=== PATIENT | female | born 1985 ===

== ENCOUNTER 2017-02-01 07:05 | Inpatient (IN) | payer MEDICAID ==
[2017-02-01 06:09] VITALS: BMI 31.3
[2017-02-01 06:23] LABS: HEMATOCRIT 31.2 % (34.0-47.0); MEAN CELL VOLUME 74.9 fL (81.0-99.0); MEAN CORPUSCULAR HEMOGLOBIN 24.2 pg (27.0-31.0); MEAN CORPUSCULAR HGB CONC 32.2 g/dL (33.0-37.0); MEAN PLATELET VOLUME 9.1 fL (7.2-11.7); RED CELL DISTRIBUTION WIDTH 15.3 % (11.5-14.5); WHITE BLOOD COUNT 6.4 K/uL (4.8-10.8)
[2017-02-01 06:26] LABS: RBC URINE 1 /hpf (0-3); URINE BILIRUBIN NEGATIVE (NEGATIVE); URINE BLOOD NEGATIVE (NEGATIVE); URINE COLOR Yellow (YELLOW); URINE GLUCOSE (UA) NORMAL (Normal); URINE KETONE 1+ mg/dL (NEGATIVE); URINE LEUKOCYTE ESTERASE NEG Leu/uL (Negative); URINE PROTEIN 1+ mg/dL (NEGATIVE); URINE UROBILINOGEN NORMAL mg/dL (0.2-1.0); WBC URINE 2 /hpf (0-5)
--- NOTE | 2017-02-01 06:39 | OBADHP ---
Datetime: 02/01/2017 06:36 Admit Comment, IP Provider: chief complaint-scheduled csection HPI 31 y/o at 39.2 wga here for scheduled section course abnormal 1 hour gtt PMH denies PSH csectionx2 Obgyn hx ; csectionx2 Social hx deies tobacco,alcohol or illicit drug use Exam see exam section A/P 31 y/o at 39.2 wga here for scheduled csection.Requesting sterilization -admit -see orders Extremities - PN: Normal Abdomen - PN: Normal Back - PN: Normal Lungs - PN: Normal Heart - PN: Normal Neurologic - PN: Normal General - PN: Normal Presentation-Admit: Vertex Contraction Comments Provider: oc Gestation - Est Wks by US: 39.0 IP Hx Assessment: The History has been Reviewed and is Current Vital Signs Provider: Reviewed; Within Normal Limits IP Chief Complaint: Scheduled Section FHR Category Provider Fetus A: Category I Genitourinary Exam: Normal DTRs - PN: Normal EGA AdmitDate IP: 39.2 IP Adm Impression: Term, intrauterine ; No Active Labor IP Admit Plan: Admit to unit; Initiate Section protocol
[2017-02-01 06:43] LABS: CHLORIDE 106 mmol/L (98-107); POTASSIUM 3.5 mmol/L (3.6-5.2); SODIUM 134 mmol/L (132-148)
[2017-02-01 06:45] LABS: ALKALINE PHOSPHATASE 280 U/L (38-126); AST/SGOT 20 U/L (14-36); BILIRUBIN,TOTAL 0.6 mg/dL (0.2-1.3); CARBON DIOXIDE 17 mmol/L (22-30); GFR AFRICAN-AMERICAN > 60
[2017-02-01 06:46] LABS: ALB/GLOB RATIO 1.1 (1.0-2.1); ALT/SGPT 19 U/L (9-52); BLOOD UREA NITROGEN 6 mg/dL (7-17); CALCIUM 8.6 mg/dl (8.6-10.4); GLUCOSE,RANDOM 75 mg/dL (65-105); TOTAL PROTEIN 6.8 g/dL (6.3-8.3)
[~2017-02-01 07:05] MED LIST: Lactated Ringer's 1,000 ML IV SCH; Sodium Citrate/Citric Acid 15 ml Sol PO ONE; cefOXitin IV 2 gm in Dextrose 2 GM/50 ML BAG IVPB ONE
[2017-02-01] MEDS ORDERED: Oxytocin 20 units in LR 2,000 ML IV ONE ×2 (07:16→07:52)
[2017-02-01] MEDS ORDERED: cefOXitin IV 2 gm in Dextrose 2 GM/50 ML BAG IVPB ONE (07:20)
[2017-02-01] MEDS ORDERED: Oxytocin 10 Units/ml Inj ONE (07:52)
--- NOTE | 2017-02-01 07:53 | PCM.SURG1 ---
Surgeon's Initial Post Op Note - Surgeon's Notes Surgeon: dr nguyen Director [employer] System: dr hernandez Type of Anesthesia: Spinal Anesthesia Administered By: dr price Pre-Operative Diagnosis: 31 yr at 39weeks repeat c/s and btl Operative Findings: see the op reort Post-Operative Diagnosis: same Operation Performed: repeat section and b/l tubal ligation Specimen/Specimens Removed: cord blood. portion of right and left tube Estimated Blood Loss: EBL {In ML}: 800 Blood Products Given: N/A Drains Used: No Drains Post-Op Condition: Good Date of Surgery/Procedure: 02/01/17 Time of Surgery/Procedure: 08:00
[2017-02-01] MEDS ORDERED: Morphine 1 mg/ml preservative-free Inj(Duramorph) ONE (07:56)
--- NOTE | 2017-02-01 08:52 | OBDS ---
DELIVERY PERSONNEL Delivery Doctor: Soham Paulino MD Scrub Nurse: Caitlyn Solo Visitor Services Associate: Donna Mckinley RN Anesthesiologist: Papito Theodore MD MATERNAL INFORMATION Delivery Anesthesia: Spinal Estimated Blood Loss (ml): 800 Placenta Cultured: No Provider Comments: baby deliverd in lot endometrium clean b/l tubal ligation no com LABOR SUMMARY EDC: 02/06/2017 00:00 No. Babies in Womb: 1 Attempted: No Labor Anesthesia: None LABOR INFORMATION Reason for Induction: Not Applicable Oxytocin: N/A Group B Beta Strep: Positive (Annotations: 01/23/2017) Antibiotics # of Doses: 1 Antibiotics Time of Last Dose: 0739 Steroids Given: None Reason Steroids Not Administered: Not Applicable MEMBRANES Membranes Rupture Method: Artificial Rupture of Membranes: 02/01/2017 08:14 Length of Rupture (hrs): 0.02 Amniotic Fluid Color: Clear Amniotic Fluid Amount: Moderate Amniotic Fluid Odor: Normal STAGES OF LABOR Stage 3 hrs: 0 Stage 3 min: 0 CSECTION DELIVERY Primary Indication: Repeat Elective Secondary Indication: Repeat Elective CSection Urgency: Elective CSection Incidence: Repeat Labor: N/A Elective: Elective CSection Incision: Lower Uterine Transverse Sterilization Procedure: [place] BABY A INFORMATION Delivery Date/Time: 02/01/2017 08:15 Method of Delivery: Born in Route : No : N/A Forceps: N/A Vacuum Extraction: N/A Shoulder Dystocia : No SHOULDER DYSTOCIA BABY A Delivery Date/Time: 02/01/2017 08:15 PRESENTATION/POSITION BABY A Presentation: Cephalic Cephalic Presentation: Vertex Vertex Position: Left Occipital Transverse Breech Presentation: N/A PLACENTA INFORMATION BABY A Placenta Delivery Time : 02/01/2017 08:15 Placenta Method of Delivery: Manual Removal Placenta Status: Delivered SCORES BABY A Heart Rate 1 min: >100 bpm Resp Effort 1 min: Good Cry Reflex Irritability 1 min: Cough or Sneeze or Pulls Away Muscle Tone 1 min: Active Motion Color 1 min: Body [place], Extremities Blue SCORE 1 MIN: 9 Heart Rate 5 min: >100 bpm Resp Effort 5 min: Good Cry Reflex Irritability 5 min: Cough or Sneeze or Pulls Away Muscle Tone 5 min: Active Motion Color 5 min: Body [place], Extremities Blue SCORE 5 MIN: 9 INFORMATION BABY A Gestational Age at Delivery: 39.2 Gestational Status: Term Outcome : Liveborn Infant Condition : Stable Infant Sex: Female IDENTIFICATION/MEDS BABY A ID Band Number: [id number] ID Band Location: Left Leg; Left Arm Sensor Applied: Yes Sensor Number: [id number] Sensor Location : Cord Clamp Vitamin K Given : Aquamephyton 0.5 mg IM Erythromycin Given: Given Both Eyes WEIGHT/LENGTH BABY A Birthweight (gms): 3825 Weight (lb): 8 Infant Weight (oz): 7 Length Inches: 19.50 Infant Length cms: 49.5 CORD INFORMATION BABY A No. Cord Vessels: 3 Nuchal Cord : N/A Nuchal Cord Other: 0 True Knot: 0 Infant Cord pH Baby Arterial: N/A Cord pH Baby Venous: N/A Cord Blood Taken: Yes Banking/Donate Info: N/A Infant Suction: Mouth; Nose ASSESSMENT BABY A Infant Complications: None Physical Findings at Delivery: Within Normal Limits Infant Respirations: Appears Normal Fence Gate Assembler/ALS Called : No Care By: Dallin Kaplan RN Transferred To: Remains with Mother
[2017-02-01] MEDS ORDERED: Naloxone 0.4 mg/ml Inj (Adult) IVP PRN (09:00)
--- NOTE | 2017-02-01 09:27 | OP ---
PROCEDURE DATE: 02/01/2017 PREOPERATIVE DIAGNOSIS: A 31-year-old 3, para 2 at 39 weeks for scheduled section a nd bilateral tubal ligation. SURGEON: Soham Paulino MD. SUPERVISOR PATCHING SURGEON: Dr. Perdomo, who was present throughout for retraction, exposure, and pushing at the time of the delivery, and helping with the tubal ligation. ANESTHESIA: Spinal. ANESTHESIOLOGIST: Dr. Theodore. ESTIMATED BLOOD LOSS: 800. PROCEDURE PERFORMED: Repeat section and bilateral tubal ligation. COMPLICATIONS: None. PROCEDURE: After informed consent was obtained, the patient was brought to the operating room, place d on the table where spinal anesthesia was given. When anesthesia was found to be adequate, she was prepped and draped in normal sterile fashion. Saldivar catheter was inserted under sterile condition. After that, 2 cm above the pubic bone at the site of the previous skin incision, incision was made wi th a knife, the subcutaneous with a Bovie. The fascia was excised and extended on both the sides usi ng curved Young scissors. Fascia was first at the site of the pubic bone then at the site o f the umbilicus, and the rectus muscle was held up with 2 Allises. It was cut with a knife, then the peritoneum was excised, held up with Allises, was cut with the Metzenbaum scissors. We went into th e abdominal cavity. There were no adhesions. Bladder blade was made. Bladder flap was created, and bladder blade was placed. Lower uterine segment incision was made with a knife, extended on both th e sides using bandage scissors. Baby delivered in LOT position. Cord was clamped and cut. Baby was handed over to the awaiting shirt sewer. Placenta delivered manually. After that, uterus exterior ized, cleared of all the clots and debris. Uterine incision was closed using 1-0 Vicryl in nonlocking fashion. Second layer closure with the sa me stitch. Both the tubes were visualized. The patient wanted tubal ligation. So bilateral tubal l igation was then modified Akira technique. Portion of right and left tube was sent to pathology, a nd after that, cul-de-sac was cleared of all clots and debris. Uterus was returned back to abdominal cavity. The tubes were looked back again, and were not bleeding. Then incision was looked back and was ____ hemostatic. Then the peritoneum was closed using 2-0 Vicryl in nonlocking fashion. Muscle was closed using 2-0 running nonlocking fashion. The fascia was closed using 1-0 Vicryl in nonlocki ng fashion. The subcutaneous with 0 Vicryl interrupted fashion. Skin was closed using adnna. The patient tolerated the procedure well. Laps, sponge, and instrument counts correct x 2. Soham Paulino MD cc: [id number] TT: 02/01/2017 09:27:00 jn
[2017-02-01] MEDS: Simethicone 80 mg Chewtab PO SCH ×3 (14:34→22:05)
[2017-02-01] MEDS: Oxycodone/Acetaminophen 5/325 mg Tab PO PRN (18:32)
[2017-02-02] MEDS: Oxycodone/Acetaminophen 5/325 mg Tab PO PRN ×3 (00:28→18:16)
[2017-02-02 07:37] LABS: HEMATOCRIT 26.2 % (34.0-47.0); MEAN CORPUSCULAR HEMOGLOBIN 24.5 pg (27.0-31.0); MEAN CORPUSCULAR HGB CONC 32.6 g/dL (33.0-37.0); MEAN PLATELET VOLUME 8.7 fL (7.2-11.7); RED CELL DISTRIBUTION WIDTH 15.4 % (11.5-14.5); WHITE BLOOD COUNT 6.7 K/uL (4.8-10.8)
[2017-02-02] MEDS ORDERED: Bisacodyl 5mg EC Tab PO ONE (07:51)
[2017-02-02] MEDS: Simethicone 80 mg Chewtab PO SCH ×4 (10:04→21:30)
--- NOTE | 2017-02-02 15:03 | OBPPN ---
Datetime: 02/02/2017 13:05 PP Pain Prov: Within normal limits PP Nausea Prov: Denies PP Flatus Prov: No PP BM Prov: No PP Breasts Prov: Normal PP Heart Prov: Normal PP Lungs Prov: Normal PP Abdomen/Uterus Prov: Normal PP Lochia Prov: Normal PP Vulva/Perineum Prov: Not Done PP CVA Tenderness Prov: Normal PP Extremities Prov: Normal PP C/S Incision Prov: Normal PP Progress Prov: Normal PP Comments Phys Exam Prov: Abdomen: Soft. (+) BS. Non distended. Fundus firm, mobile, minimally ten maureen, 1 FB below umbilicus. Incision with danna - clean, dry, intact. Extremities: no calf tenderness All other systems reviewed and are negative PP Impression Prov: Normal progression PP Plan Prov: Continue present management PP Progress Note Prov: Patient received in room 460, sitting up in chair - seen at approximately 110 5 hours. exclusively. Denies dizziness, chest pain, shortness of breath or palpitation s. P.E.: as above. Mildly obese, in NAD. Awake, alert, oriented to time, person and place. Pleasant a nd cooperative - POD#1 H/H 8.6/26.2 Rh(+) Assessment: POD#1 31 yo P3, S/P C/S #3 with BTL. Afebrile, vital signs table. Returning GI and functions. Anemia noted; asymptomatic and hemodynamically stable. Encouraged to walk. Clinically sta ble. Plan: 1) continue present management Vital Signs Provider PP: Reviewed; Within Normal Limits
[2017-02-03] MEDS: Oxycodone/Acetaminophen 5/325 mg Tab PO PRN (02:11)
--- NOTE | 2017-02-03 08:06 | OBPPN ---
Datetime: 02/03/2017 08:03 PP Pain Prov: Within normal limits PP Nausea Prov: Denies PP Flatus Prov: Yes PP Heart Prov: Normal PP Lungs Prov: Normal PP Abdomen/Uterus Prov: Normal PP Lochia Prov: Normal PP CVA Tenderness Prov: Normal PP Extremities Prov: Normal PP C/S Incision Prov: Normal PP Progress Prov: Normal PP Impression Prov: Normal progression PP Plan Prov: Continue present management PP Progress Note Prov: S-patient reports that pain is well controlled.tolerating regular diet.ambula ting and voiding without difficulty O-VSS Afebrile Fundus firm and below umbilicus incision clean dry and intact extremities no calf tenderness A/P Patient s/p csection pod 2 doing well.anemia noted on labs -continue iron -continue routine pp care -anticipate discharge tomorrow Vital Signs Provider PP: Reviewed; Within Normal Limits
[2017-02-03] MEDS: Simethicone 80 mg Chewtab PO SCH ×4 (09:58→21:17)
[2017-02-04 08:54] VITALS: RESP 18
[2017-02-04] MEDS: Simethicone 80 mg Chewtab PO SCH ×2 (09:59→14:21)
--- NOTE | 2017-02-04 10:33 | OBDCSUM ---
Datetime: 02/04/2017 10:02 Discharged to, Provider: Home Follow up at, Provider: [facility]UNDO Disch Instr Activity: Normal activity; May Shower Disch Instr Diet: Regular Discharge Diet restrict Prov: none Discharge Diagnosis, Provider: Term Delivered Discharge Time: 02/04/2017 10:03 Follow up in weeks, Provider: Monday02/08/2017 Disch Referrals: None Disch Activity Restrictions: No exercising; No lifting; No driving; No sexual activity; Nothing in v agina - [place], tampons, douche Discharge Diagnosis Prov Other: Status post repeat section Status post bilateral tubal ligation Anemia
[2017-02-04] MEDS ORDERED: Measles, Mumps, and Rubella 0.5 ML VIAL SC ONE ×2 (11:00→16:45)
[2017-02-04 16:38] VITALS: BP 120/75; PULSE 69; TEMP 98.2; O2SAT 100
== END 2017-02-04 17:45 | disposition home or self-care (01) | DRG 370 ==
LOC: C.4D 07:05 → C.4M 11:18
PROVIDERS: ADMIT Obstetrics & Gynecology; ATTEND Obstetrics & Gynecology
PROC: 10D00Z1 Extraction of Products of Conception, Low, Open Approach (ICD-10-PCS; principal; 2017-02-01)
PROC: 0UL70ZZ Occlusion of Bilateral Fallopian Tubes, Open Approach (ICD-10-PCS; 2017-02-01)
DX: O34.211 Maternal care for low transverse scar from previous cesarean delivery (principal); O99.02 Anemia complicating childbirth; O99.214 Obesity complicating childbirth; O69.81X0 Labor and delivery complicated by cord around neck, without compression, not applicable or unspecified; Z30.2 Encounter for sterilization; Z3A.39 39 weeks gestation of pregnancy; Z68.31 Body mass index [BMI] 31.0-31.9, adult; Z37.0 Single live birth

== ENCOUNTER 2017-02-14 18:01 | Emergency (ER) | payer MEDICAID ==
[2017-02-14 18:01] VITALS: BMI 31.3
[2017-02-14 18:13] VITALS: O2SAT 98
--- NOTE | 2017-02-14 18:43 | C.PDOC ---
History Of Present Illness 31 year old at 39weeks had repeat and bilateral tubal ligation on 02/01/[address] Paulino. She had danna removed 02/08 and the following day after shower noticed wound opened. The next day wound opened in another area. She has been having foul smelling discharge and pain to area. She developed fever last night, took Motrin with little relief. Fever persists today and is here for evaluation. Time Seen by Provider: 02/14/17 18:26 Chief Complaint (Nursing): Abnormal Skin Integrity History Per: Patient History/Exam Limitations: no limitations Onset/Duration Of Symptoms: Days Current Symptoms Are (Timing): Still Present Quality Of Discomfort: "Pain" Past Medical History Reviewed: Historical Data, Nursing Documentation, Vital Signs Vital Signs: Last Vital Signs Temp 97.9 F 02/14/17 20:14 Pulse 82 02/14/17 20:14 Resp 18 02/14/17 20:14 BP 132/72 02/14/17 20:14 Pulse Ox 98 02/14/17 20:14 Surgical History: Other [facility] EXTRACTION OF POC, LOW CERVICAL, OPEN APPROACH (02/01/17) LOW CERVICAL (04/28/15) OCCLUSION OF BILATERAL FALLOPIAN TUBES, OPEN APPROACH (02/01/17) Family History: States: No Known Family Hx - Social History Hx Alcohol Use: No Hx Substance Use: No - Immunization History Hx Tetanus Toxoid Vaccination: No Hx Influenza Vaccination: No Hx Pneumococcal Vaccination: No Review Of Systems Constitutional: Positive for: Fever. Negative for: Chills Cardiovascular: Negative for: Chest Pain Respiratory: Negative for: Cough, Shortness of Breath Gastrointestinal: Positive for: Abdominal Pain. Negative for: Nausea, Vomiting , Diarrhea Genitourinary: Negative for: Dysuria Skin: Positive for: Other (pus from wound). Negative for: Rash Neurological: Negative for: Headache, Dizziness Physical Exam - Physical Exam Appears: Non-toxic, No Acute Distress Skin: Warm, Other ( site foul odor and purulent discharge noted. Superficial wound opening to right and left lateral edges and to right middle section) Head: Atraumatic, Normacephalic Eye(s): bilateral: Normal Inspection Nose: Normal Oral Mucosa: Moist Neck: Normal ROM Chest: Symmetrical Cardiovascular: Rhythm Regular, No Murmur Respiratory: Normal Breath Sounds, No Rales, No Rhonchi, No Wheezing Gastrointestinal/Abdominal: Bowel Sounds (active), Soft, Tenderness (minimal tendernesss around site), No Guarding, No Rebound Extremity: Normal ROM, Capillary Refill (<2 seconds) Neurological/Psych: Oriented x3, Normal Speech Gait: Steady ED Course And Treatment - Laboratory Results Result Diagrams: 02/14/17 18:58 02/14/17 18:58 Lab Interpretation: No Acute Changes O2 Sat by Pulse Oximetry: 98 (RA) Pulse Ox Interpretation: Normal Medical Decision Making Medical Decision Making: Impression: Csection wound opening with discharge and associated fever Plan: * CBC * CMP * UA * Consult OB, help appreciated Progress: Case discussed with Dr Hearn who agreed with plan and treatment Labs reviewed showing no leukocytosis and no acute changes to H/H [address] OB real [address] Dr Lemos at bedside recommends IV Zosyn and Flagyl dose. Flagyl was then cancelled patient is and wishes to continue. Dr Lemos cleaned the wound and applied sterile dressing. She states patient is appropriate for discharge with oral antibiotics Augmentin and to follow up in the clinic February 22. Disposition Counseled Patient/Family Regarding: Diagnosis, Need For Followup, Rx Given - Disposition [facility] Disposition: HOME/ ROUTINE Disposition Time: 20:37 Condition: STABLE Additional Instructions: Por favor, siga en la clnica el [place] Augmentin segn lo prescrito dos veces al da Mantenga la herida limpia y seca puede cambiar el vendaje diariamente [place] Tylenol o Advil para cualquier dolor o fiebre Prescriptions: Amoxicillin/Clavulanate [Augmentin 875 MG-125 MG] 1 tab PO BID #14 tab Instructions: Acute Wound Care (ED) Print Language: AZERI - POA Present On Arrival: None - Clinical Impression Clinical Impression: Separation of wound with drainage, - PA / ICICLE MACHINE OPERATOR / Resident Statement MD/DO has reviewed & agrees with the documentation as recorded. - Scribe Statement The provider has reviewed the documentation as recorded by the Oscaribjosé Hodges All medical record entries made by the Scribe were at my direction and personally dictated by me. I have reviewed the chart and agree that the record accurately reflects my personal performance of the history, physical exam, medical decision making, and the department course for this patient. I have also personally directed, reviewed, and agree with the discharge instructions and disposition.
[2017-02-14 19:04] LABS: BASO % 0.5 % (0.0-2.0); EOS % 0.7 % (0.0-4.0); HEMATOCRIT 31.1 % (34.0-47.0); LYMPH # 0.9 K/uL (1.0-4.3); LYMPH % 16.2 % (20.0-40.0); MEAN CELL VOLUME 73.2 fL (81.0-99.0); MEAN CORPUSCULAR HEMOGLOBIN 23.4 pg (27.0-31.0); MEAN CORPUSCULAR HGB CONC 31.9 g/dL (33.0-37.0); MEAN PLATELET VOLUME 8.4 fL (7.2-11.7); MONO # 0.3 K/uL (0.0-0.8); MONO % 5.5 % (0.0-10.0); RED CELL DISTRIBUTION WIDTH 16.2 % (11.5-14.5); WHITE BLOOD COUNT 5.5 K/uL (4.8-10.8)
[2017-02-14 19:18] LABS: CHLORIDE 101 mmol/L (98-107)
[2017-02-14 19:19] LABS: POTASSIUM 3.4 mmol/L (3.6-5.2); SODIUM 137 mmol/L (132-148)
[2017-02-14 19:20] LABS: RBC URINE 1 /hpf (0-3); URINE BACTERIA OCC (<OCC); URINE BILIRUBIN NEGATIVE (NEGATIVE); URINE BLOOD NEGATIVE (NEGATIVE); URINE COLOR Yellow (YELLOW); URINE GLUCOSE (UA) NORMAL (Normal); URINE KETONE NEGATIVE (NEGATIVE); URINE LEUKOCYTE ESTERASE TRACE Leu/uL (Negative); URINE PROTEIN NEGATIVE (NEGATIVE); URINE UROBILINOGEN NORMAL mg/dL (0.2-1.0); WBC URINE 8 /hpf (0-5)
[2017-02-14 19:21] LABS: ALKALINE PHOSPHATASE 146 U/L (38-126); AST/SGOT 21 U/L (14-36); BILIRUBIN,TOTAL 0.5 mg/dL (0.2-1.3); BLOOD UREA NITROGEN 11 mg/dL (7-17); CARBON DIOXIDE 24 mmol/L (22-30); GFR AFRICAN-AMERICAN > 60; GLUCOSE,RANDOM 95 mg/dL (65-105); TOTAL PROTEIN 7.6 g/dL (6.3-8.3)
[2017-02-14 19:22] LABS: ALT/SGPT 31 U/L (9-52); CALCIUM 8.5 mg/dl (8.6-10.4)
[2017-02-14] MEDS ORDERED: Piperacillin/Tazobact 3.375 gm 100 ML IV STA (19:45)
[2017-02-14] MEDS ORDERED: Piperacillin/Tazobact 3.375 gm 100 ML IVPB ONE (19:50)
[2017-02-14] MEDS ORDERED: metroNIDAZOLE IV 500 mg/100 ml 500 MG/100 ML BAG IV ONE (20:00)
--- NOTE | 2017-02-14 20:12 | CP.PCM.CON ---
History of Present Illness - History of Present Illness History of Present Illness: Asked by Evaristo Bonner to evaluate patient: S/P repeat section 02/01/17, wound separation 31 yo P3, S/P C/S #3 with bilateral tubal ligation 02/01/17; patient had an unremarkable post operative course, significant for anemia. Patient was discharged home 02/04/17, afebrile, and counseled to continue vitamins and iron supplementation. Patient was seen in clinic 02/08/17 - danna removed. [place] well until 02/11/17, when noticed a foul odor from the incision. Initially thought this was from the vagina and related to vaginal bleeding. "Then, I realized I was no longer bleeding", and decided to come in for evaluation. Denies fevers, chills, rigors; nausea or vomiting. (+) BM. . P OB: C/S x 3 PGYN: 12 x monthly x 5 PMH: denies PSH: C/S x 3; last one as above with BTL NKDA Meds: vit, iron Soc Hx: denies tobacco illicit drug or EtOH use. Lives with FOB and children Fam Hx: mother and father alive and well; no med issues Review of Systems - Review of Systems All systems: reviewed and no additional remarkable complaints except - Integumentary Integumentary: As Per HPI Past Patient History - Infectious Disease Hx of Infectious Diseases: None - Past Medical History & Family History Past Medical History?: No Past Family History: Reviewed and not pertinent - Past Social History Smoking Status: Never Smoked Drugs: Denies Home Situation {Lives}: With Family - CARDIAC Hx Cardiac Disorders: No - PULMONARY Hx Respiratory Disorders: No - NEUROLOGICAL Hx Neurological Disorder: No - HEENT Hx HEENT Problems: No - RENAL Hx Chronic Kidney Disease: No - ENDOCRINE/METABOLIC Hx Endocrine Disorders: No - HEMATOLOGICAL/ONCOLOGICAL Hx Anemia: Yes - INTEGUMENTARY Hx Dermatological Problems: No - MUSCULOSKELETAL/RHEUMATOLOGICAL Hx Musculoskeletal Disorders: No - GASTROINTESTINAL Hx Gastrointestinal Disorders: No - GENITOURINARY/GYNECOLOGICAL Hx Genitourinary Disorders: No - PSYCHIATRIC Hx Psychophysiologic Disorder: No Hx Substance Use: No - SURGICAL HISTORY Hx Surgeries: Yes Hx Section: Yes (X3(2010,2014,2016)) Meds Home Medications: Home Medication List Medication Instructions Recorded Confirmed Type Amoxicillin/Clavulanate [Augmentin 1 tab PO BID #14 tab 02/14/17 Rx 875 MG-125 MG] Allergies/Adverse Reactions: Allergies Allergy/AdvReac Type Severity Reaction Status Date / Time No Known Allergies Allergy Verified 02/14/17 18:06 - Medications Medications: Current Medications Piperacillin Sod/Tazobactam Sod (Zosyn 3.375 In Ns 100ml) 100 mls @ 200 mls/hr IV STAT STA Stop: 02/14/17 20:14 Last Admin: 02/14/17 20:00 Dose: 200 mls/hr Physical Exam - Constitutional Appears: Well, No Acute Distress - Head Exam Head Exam: NORMAL INSPECTION - Eye Exam Eye Exam: Normal appearance - ENT Exam ENT Exam: Mucous Membranes Moist - Neck Exam Neck exam: Positive for: Full Rom, Normal Inspection - Respiratory Exam Respiratory Exam: NORMAL BREATHING PATTERN - Cardiovascular Exam Cardiovascular Exam: REGULAR RHYTHM - GI/Abdominal Exam GI & Abdominal Exam: Normal Bowel Sounds (Non tender in all quadrants. Pfannenstiel noted for minimal separation in 3 locations: the largest 1cm x 4mm along right paramedian line. the other 2 at right and left angles, each approx 4 mm. Incision cleaned with hydrogen peroxide: normal saline soaked gauze and probed with swab. No further separation.), Soft - Extremities Exam Extremities exam: Positive for: full ROM, normal inspection - Neurological Exam Neurological exam: Alert, Oriented x3 - Psychiatric Exam Psychiatric exam: Normal Affect, Normal Mood - Skin Skin Exam: Dry, Intact, Normal Color, Warm Results - Vital Signs Recent Vital Signs: Last Vital Signs Temp 101.2 F H 02/14/17 18:07 Pulse 102 H 02/14/17 18:07 Resp 17 02/14/17 18:07 BP 101/68 02/14/17 18:07 Pulse Ox 98 02/14/17 20:01 - Labs Result Diagrams: 02/14/17 18:58 02/14/17 18:58 Labs: Laboratory Results - last 24 hr 02/14/17 02/14/17 02/14/17 18:58 18:58 18:58 WBC 5.5 RBC 4.25 Hgb 9.9 L Hct 31.1 L MCV 73.2 L MCH 23.4 L MCHC 31.9 L RDW 16.2 H Plt Count 247 MPV 8.4 Neut % (Auto) 77.1 H Lymph % (Auto) 16.2 L [place] % (Auto) 5.5 Eos % (Auto) 0.7 Baso % (Auto) 0.5 Neut # 4.2 Lymph # 0.9 L [place] # 0.3 Eos # 0.0 Baso # 0.0 Sodium 137 Potassium 3.4 L Chloride 101 Carbon Dioxide 24 Anion Gap 15 BUN 11 Creatinine 0.8 Est GFR ( Amer) > 60 Est GFR (Non-Af Amer) > 60 Random Glucose 95 Lactic Acid Calcium 8.5 L Total Bilirubin 0.5 AST 21 ALT 31 Alkaline Phosphatase 146 H D Total Protein 7.6 Albumin 3.9 Globulin 3.8 Albumin/Globulin Ratio 1.0 Urine Color Yellow Urine Clarity Clear Urine pH 6.0 Ur Specific [place] 1.020 Urine Protein Negative Urine Glucose (UA) Normal Urine Ketones Negative Urine Blood Negative Urine Nitrate Negative Urine Bilirubin Negative Urine Urobilinogen Normal Ur Leukocyte Esterase Trace Urine WBC (Auto) 8 H Urine RBC (Auto) 1 Ur Squamous Epith Cells < 1 Urine Bacteria Occ H 02/14/17 18:58 WBC RBC Hgb Hct MCV MCH MCHC RDW Plt Count MPV Neut % (Auto) Lymph % (Auto) [place] % (Auto) Eos % (Auto) Baso % (Auto) Neut # Lymph # [place] # Eos # Baso # Sodium Potassium Chloride Carbon Dioxide Anion Gap BUN Creatinine Est GFR ( Amer) Est GFR (Non-Af Amer) Random Glucose Lactic Acid 0.5 L Calcium Total Bilirubin AST ALT Alkaline Phosphatase Total Protein Albumin Globulin Albumin/Globulin Ratio Urine Color Urine Clarity Urine pH Ur Specific [place] Urine Protein Urine Glucose (UA) Urine Ketones Urine Blood Urine Nitrate Urine Bilirubin Urine Urobilinogen Ur Leukocyte Esterase Urine WBC (Auto) Urine RBC (Auto) Ur Squamous Epith Cells Urine Bacteria Assessment & Plan - Assessment and Plan (Free Text) Assessment: POD#13, 31 yo P3, S/P C/S x 3 with BTL 02/01/17, with slight/ minimal wound separation, as described above. Patient with elevated temp as above. May also be related to breast engorgement, last fed at 1700 hours. No elevated WBC. Abdominal exam is benign; normal GI function. It was discussed with patient to keep area clean and dry; and to observe for any signs of worsening infection ( fever, chills, vomiting, diarrhea); and to take antibiotics as prescribed. With this drug, she can continue to breastfeed. Patient, and significant other, expressed an understanding and agree. S/P tylenol, adequate response; repeat temp 97.9 Fahrenheit. Patient is clinically stable. Plan: Discharge home Augmentin 500 mg p.o. BID x 7 days Follow up [facility] 02/22/17 for wound check Return to E.D. for fever, chills, rigors, nausea, vomiting, diarrhea Continue vitamins and iron supplementation Thank you for the pleasure of this consultation - Date & Time Date: 02/14/17 Time: 20:00
[2017-02-14 20:15] VITALS: BP 132/72; PULSE 82; RESP 18; TEMP 97.9
== END 2017-02-14 20:41 | disposition home or self-care (01) ==
LOC: C.ER 18:01
DX: O90.0 Disruption of cesarean delivery wound (principal)
CPT/HCPCS: 80053; 81001; 83605; 85025; 87040; 87070; 87086; 96360; 99285; J2543

== ENCOUNTER 2017-10-16 15:54 | Emergency (ER) | payer MEDICAID, OTHER ==
[2017-10-16 15:54] VITALS: BMI 31.3
[2017-10-16 16:03] VITALS: O2SAT 100
--- NOTE | 2017-10-16 17:34 | C.PDOC ---
History Of Present Illness 32 year old female presents complaining of left sided pelvic pain, intermittent since her 9 months ago. States she had similar pain after a previous child was born which later resolved. Pain worsens with straining including lifting up children and pushing the stroller. Seen by her BAG GRADER and was told it was healing from the incision. Today patient developed vaginal spotting, which she noted when she went to wipe. Of note, patient is currently breast feeding and her periods are irregular. PMD: none Time Seen by Provider: 10/16/17 17:33 Chief Complaint (Nursing): Female Genitourinary History Per: Patient History/Exam Limitations: no limitations Onset/Duration Of Symptoms: Intermittent Episodes Current Symptoms Are (Timing): Still Present Past Medical History Reviewed: Historical Data, Nursing Documentation, Vital Signs Vital Signs: Last Vital Signs Temp 97.8 F 10/16/17 20:38 Pulse 88 10/16/17 20:38 Resp 18 10/16/17 20:38 BP 108/69 10/16/17 20:38 Pulse Ox 100 10/16/17 21:53 - Medical History PMH: Anemia Denies: Chronic Kidney Disease [facility]: [facility] EXTRACTION OF POC, LOW CERVICAL, OPEN APPROACH (02/01/17) LOW CERVICAL (04/28/15) OCCLUSION OF BILATERAL FALLOPIAN TUBES, OPEN APPROACH (02/01/17) Family History: States: No Known Family Hx - Social History Hx Alcohol Use: No Hx Substance Use: No - Immunization History Hx Tetanus Toxoid Vaccination: No Hx Influenza Vaccination: No Hx Pneumococcal Vaccination: No Review Of Systems Except As Marked, All Systems Reviewed And Found Negative. Constitutional: Negative for: Fever, Chills Gastrointestinal: Negative for: Nausea, Vomiting, Abdominal Pain Genitourinary: Positive for: Vaginal Bleeding, Pelvic Pain (left). Negative for : Dysuria, Frequency, Vaginal Discharge Physical Exam - Physical Exam Appears: Well, Non-toxic, No Acute Distress Skin: Normal Color, Warm, Dry Head: Atraumatic, Normacephalic Eye(s): bilateral: Normal Inspection, EOMI Nose: Normal Oral Mucosa: Moist Neck: Normal ROM, Supple Chest: Symmetrical Respiratory: No Accessory Muscle Use, Other (speaking full sentences) Gastrointestinal/Abdominal: Soft, Tenderness (Left-sided pelvic tenderness), Other (Well-healed incision with no erythema, tenderness, or drainage) Back: No CVA Tenderness, No Vertebral Tenderness Extremity: Normal ROM Extremity: Bilateral: Atraumatic Neurological/Psych: Oriented x3, Normal Speech, No Other (focal deficits) ED Course And Treatment O2 Sat by Pulse Oximetry: 100 (RA) Pulse Ox Interpretation: Normal - CT Scan/US US Pelvis Other Rad Studies (CT/US): Read By Radiologist, Radiology Report Reviewed CT/US Interpretation: FINDINGS: Uterus/cervix: The uterus measures 8.6 x 3. 8 by 5.8 cm. Nabothian cyst is. seen in the cervix. A 4 mm echogenic focus is noted within the fundic portion. of the endometrial canal. The endometrial stripe measures 6 mm. A trace. amount of fluid is noted in the endometrial canal. A posterior. submucosal/intramural fibroid is noted in the uterine fundus measuring 1.3 x. 1.1 x 1.8 cm. Right ovary: The right ovary measures 4.7 x 3 x 2.8 cm and contains several. subcentimeter follicles. Blood flow is seen in the right ovary on color Doppler. examination. Left ovary: The left ovary measures 4.4 x 2.6 x 3.4 cm. Several. subcentimeter follicles are present. Blood flow is seen in the left ovary on. color Doppler examination. Small amount fluid surrounds the left ovary. Free fluid: No free fluid. Bladder: Empty bladder which cannot be evaluated with this probe. . IMPRESSION: 1. Posterior submucosal/intramural uterine fibroid in the fundus. . 2. 4 mm echogenic focus within the fundic portion of the endometrial canal. This could be related to previous surgery. It could also be related to. calcification or air within the endometrial canal. . 3. Trace amount of fluid noted within the endometrial canal Progress Note: Ordered UA, urine culture, and pelvis/transvag ultrasound. Pt given 650 mg Tylenol PO. US findings d/w patient in detail and given copy of US. Patient will f/u with water resources technical officer in1-2 days. Case discussed and results evlauated by Dr Madrid, agreed upon plan and discharge. Disposition Counseled Patient/Family Regarding: Studies Performed, Diagnosis, Need For Followup - Disposition Disposition: HOME/ ROUTINE Disposition Time: 20:44 Condition: STABLE Additional Instructions: Follow up with your BAG GRADER in 2-5 days for further evaluation. Return to the emergency department at any time if symptoms persist or worsen. Instructions: Acute Pelvic Pain Forms: [employer] ([place]an) - POA Present On Arrival: None - Clinical Impression Clinical Impression: Pelvic pain - PA / ETCHER ELECTROL[employer] / Resident Statement MD/DO has reviewed & agrees with the documentation as recorded. - Scribe Statement The provider has reviewed the documentation as recorded by the Scribe (Lakshmi Santoro) All medical record entries made by the Scribe were at my direction and personally dictated by me. I have reviewed the chart and agree that the record accurately reflects my personal performance of the history, physical exam, medical decision making, and the department course for this patient. I have also personally directed, reviewed, and agree with the discharge instructions and disposition.
[2017-10-16 18:03] LABS: HCG,QUALITATIVE URINE NEGATIVE (NEGATIVE)
[2017-10-16 18:06] LABS: SQUAMOUS EPITHIAL < 1 /hpf (0-5); URINE BILIRUBIN NEGATIVE (NEGATIVE); URINE BLOOD 1+ (NEGATIVE); URINE CLARITY Clear (Clear); URINE COLOR Straw (YELLOW); URINE GLUCOSE (UA) NORMAL (Normal); URINE LEUKOCYTE ESTERASE NEG Leu/uL (Negative); URINE NITRATE NEGATIVE (NEGATIVE); URINE PROTEIN NEGATIVE (NEGATIVE); URINE UROBILINOGEN NORMAL mg/dL (0.2-1.0)
--- NOTE | 2017-10-16 20:29 | US ---
EXAM: US Pelvis Complete, Transabdominal CLINICAL HISTORY: 32 years old, female; Pain; Pelvic pain; Prior surgery; Surgery date: 6+ months; Surgery type: 3 c-sections; Additional info: L pain TECHNIQUE: Real-time transabdominal pelvic ultrasound (complete) with image documentation. COMPARISON: No relevant prior studies available. FINDINGS: Uterus/cervix: The uterus measures 8.1 x 3.8 x 4.7 cm. Endometrial stripe is not well seen. No myometrial mass. Right ovary: The right ovary measures 3.1 x 3 x 2.8 cm. Blood flow is seen in the right ovary on color Doppler examination. Left ovary: The left ovary is not seen as a separate structure. Free fluid: No free fluid. Bladder: Unremarkable as visualized. Wall is normal thickness for degree of distention. IMPRESSION: Poor visualization of the endometrial stripe. Nonvisualization of the left ovary. The remainder of the examination is unremarkable.. EXAM: US Pelvis, Transvaginal EXAM DATE/TIME: Exam ordered 10/16/2017 6:17 PM CLINICAL HISTORY: 32 years old, female; Pain; Pelvic pain; Prior surgery; Surgery date: 6+ months; Surgery type: 3 c-sections; Additional info: L pain TECHNIQUE: Real-time transvaginal pelvic ultrasound (complete) with image documentation. Transvaginal imaging was used for better evaluation of the endometrium and adnexa. COMPARISON: No relevant prior studies available. FINDINGS: Uterus/cervix: The uterus measures 8.6 x 3. 8 by 5.8 cm. Nabothian cyst is seen in the cervix. A 4 mm echogenic focus is noted within the fundic portion of the endometrial canal. The endometrial stripe measures 6 mm. A trace amount of fluid is noted in the endometrial canal. A posterior submucosal/intramural fibroid is noted in the uterine fundus measuring 1.3 x 1.1 x 1.8 cm. Right ovary: The right ovary measures 4.7 x 3 x 2.8 cm and contains several subcentimeter follicles. Blood flow is seen in the right ovary on color Doppler examination. Left ovary: The left ovary measures 4.4 x 2.6 x 3.4 cm. Several subcentimeter follicles are present. Blood flow is seen in the left ovary on color Doppler examination. Small amount fluid surrounds the left ovary. Free fluid: No free fluid. Bladder: Empty bladder which cannot be evaluated with this probe. IMPRESSION: 1. Posterior submucosal/intramural uterine fibroid in the fundus. 2. 4 mm echogenic focus within the fundic portion of the endometrial canal. This could be related to previous surgery. It could also be related to calcification or air within the endometrial canal. 3. Trace amount of fluid noted within the endometrial canal
[2017-10-16 20:39] VITALS: BP 108/69; PULSE 88; RESP 18; TEMP 97.8
== END 2017-10-16 20:54 | disposition home or self-care (01) ==
LOC: C.ER 15:54
DX: R10.2 Pelvic and perineal pain (principal)

== ENCOUNTER 2018-07-03 01:38 | Emergency (ER) | payer SELFPAY ==
[2018-07-03] MEDS ORDERED: Sodium Chloride 0.9% 1,000 ML IV ONE (01:55)
--- NOTE | 2018-07-03 01:55 | C.PDOC ---
History Of Present Illness Patient woke up with severe right upper quadrant pain. Sharp, stabbing, non radiating pain. Has had a history of 3 and tubal ligation. No f/c/n/v. Took some tylenol without relief Time Seen by Provider: 07/03/18 01:54 History Per: Patient History/Exam Limitations: no limitations Onset/Duration Of Symptoms: Hrs Current Symptoms Are (Timing): Still Present Context: Other Severity: Severe Pain Scale Rating Of: 6 Location Of Pain/Discomfort: RUQ Radiation Of Pain To:: None Quality Of Discomfort: Sharp, Stabbing Associated Symptoms: denies: Fever, Chills, Nausea, Vomiting Exacerbating Factors: None Alleviating Factors: None Last Bowel Movement: Yesterday Recent travel outside of the [place]: No Additional History Per: Patient Abnormal Vaginal Bleeding: No Past Medical History Reviewed: Historical Data, Nursing Documentation, Vital Signs Vital Signs: Last Vital Signs Temp 97.6 F 07/03/18 01:43 Pulse 66 07/03/18 01:43 Resp 16 07/03/18 01:43 BP 108/72 07/03/18 01:43 Pulse Ox 100 07/03/18 01:43 - Medical History PMH: Anemia Denies: Chronic Kidney Disease Surgical History: - [facility] Procedures EXTRACTION OF POC, LOW CERVICAL, OPEN APPROACH (02/01/17) LOW CERVICAL (04/28/15) OCCLUSION OF BILATERAL FALLOPIAN TUBES, OPEN APPROACH (02/01/17) Family History: States: No Known Family Hx - Social History Hx Alcohol Use: No Hx Substance Use: No - Immunization History Hx Tetanus Toxoid Vaccination: No Hx Influenza Vaccination: No Hx Pneumococcal Vaccination: No Review Of Systems Constitutional: Negative for: Fever, Chills ENT: Negative for: Throat Pain Cardiovascular: Negative for: Chest Pain Respiratory: Negative for: Shortness of Breath Gastrointestinal: Positive for: Abdominal Pain. Negative for: Nausea, Vomiting Genitourinary: Negative for: Dysuria, Vaginal Bleeding Musculoskeletal: Negative for: Back Pain Skin: Negative for: Rash Neurological: Negative for: Weakness Psych: Negative for: Anxiety Physical Exam - Physical Exam Appears: Non-toxic Skin: Warm, Dry Oral Mucosa: Moist Neck: Supple Chest: Symmetrical Cardiovascular: Rhythm Regular Respiratory: No Rales, No Rhonchi, No Wheezing Gastrointestinal/Abdominal: Bowel Sounds (tympanic), Soft, Tenderness (ruq), Distention, Guarding (voluntary), Rebound (mild) Back: Normal Inspection Extremity: Normal ROM Extremity: Bilateral: Atraumatic Pulses: Left Dorsalis Pedis: Normal, Right Dorsalis Pedis: Normal Neurological/Psych: Oriented x3, Normal Speech, Normal Cognition Gait: Steady ED Course And Treatment - Laboratory Results Result Diagrams: 07/03/18 02:20 07/03/18 02:20 O2 Sat by Pulse Oximetry: 100 Pulse Ox Interpretation: Normal Reevaluation Time: 05:27 Reassessment Condition: Improved Disposition Counseled Patient/Family Regarding: Studies Performed, Diagnosis, Need For Followup, Rx Given - Disposition Referrals: [facility] [Outside] [facility] [Outside] Disposition: HOME/ ROUTINE Disposition Time: 01:55 Condition: FAIR Additional Instructions: Please return if symptoms recur Prescriptions: Polyethylene Glycol 3350 [Miralax] 17 gm PO DAILY #270 ml Instructions: Acute Abdomen (Belly Pain), Adult (DC), Constipation, Adult (DC) - Clinical Impression Clinical Impression: Abdominal pain, Constipation
[2018-07-03 01:56] VITALS: BMI 27.0
[2018-07-03 02:24] LABS: BASO # 0.1 K/uL (0.0-0.2); BASO % 0.6 % (0.0-2.0); EOS # 0.7 K/uL (0.0-0.7); EOS % 6.1 % (0.0-4.0); HEMOGLOBIN 12.5 g/dL (11.0-16.0); LYMPH # 1.8 K/uL (1.0-4.3); LYMPH % 15.4 % (20.0-40.0); MEAN CORPUSCULAR HEMOGLOBIN 28.3 pg (27.0-31.0); MEAN CORPUSCULAR HGB CONC 33.7 g/dL (33.0-37.0); MEAN PLATELET VOLUME 8.5 fL (7.2-11.7); MONO # 0.4 K/uL (0.0-0.8); MONO % 3.7 % (0.0-10.0); NEUT # 8.6 K/uL (1.8-7.0); NEUT % 74.2 % (50.0-75.0); NRBC % 0.1 % (0.0-2.0); RBC 4.43 Mil/uL (3.80-5.20); RED CELL DISTRIBUTION WIDTH 13.3 % (11.5-14.5); WHITE BLOOD COUNT 11.6 K/uL (4.8-10.8)
[2018-07-03 02:25] LABS: HCG,QUALITATIVE URINE NEGATIVE (NEGATIVE)
[2018-07-03] MEDS ORDERED: Sodium Chloride 0.9% 1,000 ML ONE (02:30)
[2018-07-03 02:35] LABS: ALB/GLOB RATIO 1.6 (1.0-2.1); ALBUMIN 4.6 g/dL (3.5-5.0); ALT/SGPT 63 U/L (9-52); AST/SGOT 27 U/L (14-36); BLOOD UREA NITROGEN 16 mg/dL (7-17); CALCIUM 9.1 mg/dl (8.6-10.4); GFR NON-AFRICAN AMERICAN > 60; LIPASE 95 U/L (23-300)
[2018-07-03 02:44] LABS: PROTHROMBIN TIME 11.3 SECONDS (9.7-12.2)
[2018-07-03] MEDS ORDERED: Iodixanol 320 MG/ML 100 ML BOTTLE IV ONE (03:27)
[2018-07-03 03:33] VITALS: TEMP 97.9
[2018-07-03 04:41] LABS: SQUAMOUS EPITHIAL 2 /hpf (0-5); URINE BACTERIA OCC (<OCC); URINE BILIRUBIN NEGATIVE (NEGATIVE); URINE BLOOD NEGATIVE (NEGATIVE); URINE CLARITY Clear (Clear); URINE COLOR Yellow (YELLOW); URINE GLUCOSE (UA) NORMAL (Normal); URINE LEUKOCYTE ESTERASE NEG Leu/uL (Negative); URINE PROTEIN NEGATIVE (NEGATIVE); URINE UROBILINOGEN NORMAL mg/dL (0.2-1.0)
[2018-07-03 05:52] VITALS: BP 100/60; PULSE 74; RESP 16; O2SAT 98
--- NOTE | 2018-07-03 11:03 | CT ---
Date of service: 07/03/2018 PROCEDURE: CT Abdomen and Pelvis with contrast HISTORY: RUQ abd pain, hx of COMPARISON: TECHNIQUE: Contrast dose: Radiation dose: Total exam DLP = 294.55 mGy-cm. This CT exam was performed using one or more of the following dose reduction techniques: Automated exposure control, adjustment of the mA and/or kV according to patient size, and/or use of iterative reconstruction technique. FINDINGS: LOWER THORAX: Heart size normal. No significant pericardial effusion. Tiny hiatal hernia.. Lung carcamo clear. No evidence of infiltrate effusion or basilar pneumothorax. There is a small approximately 3.5 mm nodule right middle lobe. Followup CT scan of the chest could be performed to further evaluate the remaining lung carcamo and serve future baseline for comparison studies LIVER: Liver is borderline/mildly enlarged measuring nearly 19 cm in CC dimension. The minimal fatty hepatic infiltration. No obvious hepatic mass or collection. Portal and splenic veins are opacified. GALLBLADDER AND BILE DUCTS: Gallbladder is physiologically distended. No evidence of intraluminal gallbladder calculi PANCREAS: No evidence of pancreatic masses or collections. The SPLEEN: Spleen exhibits normal size and attenuation pattern without mass collection or calcification ADRENALS: No adrenal lesions. KIDNEYS AND URETERS: Unremarkable. No hydronephrosis. No solid mass. VASCULATURE: . No aortic aneurysm. No aortic atherosclerotic calcification or mural plaque present. Note the right ovarian vein does not appear well opacified. Rule out thrombosis. BOWEL: Evaluation of the bowel is slightly limited due to the lack of oral contrast. Stomach is incompletely distended. There are several on mildly distended fluid-filled loops of small bowel some of which exhibit minimal wall thickening. Findings could represent a nonspecific enteritis. Clinical correlation recommended. Large amount of stool is present within the cecum at ascending and transverse colon suggesting mild fecal retention/constipation.. Scattered colonic diverticula without evidence of acute diverticulitis no definitive abnormal mural wall thickening. APPENDIX: Normal appendix. PERITONEUM: Unremarkable. No free fluid. No free air. Small fat containing umbilical hernia. LYMPH NODES: Unremarkable. No enlarged lymph nodes. BLADDER: The urinary bladder is physiologically distended with minimal wall thickening. Clinical correlation with urinalysis. No intraluminal urinary bladder calculi. REPRODUCTIVE: . Unremarkable as visualized. BONES: There are no acute fractures.. Minimal degenerative spondylosis lower thoracic and lumbar spine. OTHER FINDINGS: None. IMPRESSION: Questionable mild enteritis as described. Few scattered colonic diverticula without radiographic evidence of acute diverticulitis. Findings also suggest mild localized fecal retention/constipation. Borderline hepatomegaly with mild fatty infiltration. Right ovarian vein does not appear well opacified; rule out thrombosis. Small approximately 3.5 mm nodule right middle lobe. Followup CT scan chest. Note that this report was placed in PA review folder for followup recommended as detailed above
== END 2018-07-03 05:52 | disposition home or self-care (01) ==
LOC: C.ER 01:38
DX: R10.11 Right upper quadrant pain (principal); K59.00 Constipation, unspecified
CPT/HCPCS: 74177; 80053; 81001; 83690; 84703; 85025; 85610; 85730; 96361; 96374; 96375; 99284; J1885; J2270; J2405; J7030; Q9967

== ENCOUNTER 2018-11-21 09:46 | Outpatient (CLI) | payer OTHER | END 2018-11-21 09:47 | disposition home or self-care (01) | LOC: C.LAB 09:46 ==

== ENCOUNTER 2018-11-30 09:36 | Outpatient (CLI) | payer OTHER | END 2018-11-30 09:37 | disposition home or self-care (01) | LOC: C.USIC 09:36 | DX: R10.2 Pelvic and perineal pain (principal) ==